=== PATIENT | female | born 1955 | race Two or more races ===

== ENCOUNTER 2018-02-03 09:00 | Day surgery (SDC) | payer MEDICARE, OTHER | END 2018-02-03 11:51 | disposition home or self-care (01) | LOC: DS 09:00 | PROVIDERS: ATTEND Surgery | DX: K31.89 Other diseases of stomach and duodenum (principal); K20.9 Esophagitis, unspecified; K25.9 Gastric ulcer, unspecified as acute or chronic, without hemorrhage or perforation; K64.8 Other hemorrhoids; K44.9 Diaphragmatic hernia without obstruction or gangrene; Z86.010 Personal history of colon polyps; I10 Essential (primary) hypertension; F32.9 Major depressive disorder, single episode, unspecified; Z80.0 Family history of malignant neoplasm of digestive organs; Z82.49 Family history of ischemic heart disease and other diseases of the circulatory system | CPT/HCPCS: 43239; 45378; 82962; 88305 ×2; 88313; 88342; J2704; J3490 ==

== ENCOUNTER 2018-06-15 07:43 | Day surgery (SDC) | payer MEDICARE, OTHER ==
[2018-06-15] MEDS ORDERED: BARIUM SULFATE PO ONE (15:30)
[2018-06-15] MEDS ORDERED: [UNRECOGNIZED DRUG - OTHER] PO ONE (15:30)
== END 2018-06-15 14:00 | disposition home or self-care (01) ==
LOC: DS 07:43
PROVIDERS: ATTEND Surgery
DX: K31.89 Other diseases of stomach and duodenum (principal); K21.0 Gastro-esophageal reflux disease with esophagitis; K27.9 Peptic ulcer, site unspecified, unspecified as acute or chronic, without hemorrhage or perforation; R19.4 Change in bowel habit; K44.9 Diaphragmatic hernia without obstruction or gangrene; E10.8 Type 1 diabetes mellitus with unspecified complications; F32.9 Major depressive disorder, single episode, unspecified; M19.90 Unspecified osteoarthritis, unspecified site; I10 Essential (primary) hypertension; Z80.0 Family history of malignant neoplasm of digestive organs; Z86.010 Personal history of colon polyps
CPT/HCPCS: 43239; 45378; 74280; 82962; 88305; 88313; 88342; J2704; J3490; J7120; Z7610